=== PATIENT | female | born 1980 | race Caucasian/White ===

== ENCOUNTER → 2022-11-27 08:55 | Outpatient (CLI) | payer BC, SELFPAY ==
--- NOTE | ~2022-11-27 | MMUS_ITS ---
EXAMINATION: MM diagnostic sigifredo RT w meir, US breast RT complete HISTORY: Follow-up right breast mass TECHNIQUE: Additional 3-D tomosynthesis images of the right breast were performed and synthetic 2-D i mages were generated. CAD analysis was submitted and interpreted. High resolution complete right deirdre st ultrasound was performed. COMPARISON: Comparison to multiple prior studies sequentially, with oldest reviewed study dated 12/27. BREAST PARENCHYMAL COMPOSITION: Breast composed of scattered areas of fibroglandular density FINDINGS: MAMMOGRAPHIC FINDINGS: There is a new mass in the upper inner quadrant of the right breast posteriorly near the chest wall. The low density bilobed mass located centrally in the right breast on CC view is not well visualized on medial lateral or MLO view. No suspicious calcifications or architectural distortion. ULTRASOUND: Complete US of all 4 quadrants of the right breast and retroareolar region was reviewed. Normal heter ogeneous echotexture without focal solid or cystic mass. No sonographic correlate to the mammographic findings. IMPRESSION: 1. New low-density right breast mass involving the upper inner quadrant of the right breast posterior ly without sonographic correlate. 2. Recommend wire localization and surgical biopsy. Due to the location of the abnormality in the lac k of sonographic findings this is not amenable to ultrasound-guided or stereotactic biopsy. BI-RADS category 4, suspicious findings. Reviewed, dictated and finalized at location A. IMPRESSION: 1. New low-density right breast mass involving the upper inner quadrant of the right breast posteriorly without sonographic correlate. 2. Recommend wire localization and surgical biopsy. Due to the location of the abnormality in the lack of sonographic findings this is not amenable to ultraso und-guided or stereotactic biopsy. BI-RADS category 4, suspicious findings.
== END ==
PROVIDERS: PCP Physician Assistant; Visit Provider Physician Assistant
DX: N63.12 Unspecified lump in the right breast, upper inner quadrant (principal)
CPT/HCPCS: 76641; 77061; 77065; G0279